=== PATIENT | male | born 2000 | race American Indian/Alaskan Native ===

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

== ENCOUNTER 2022-11-27 00:22 | Emergency (ER) | payer SELFPAY ==
[2022-11-27 02:23] VITALS: BP 128/67; PULSE 68
[2022-11-27] MEDS ORDERED: ALPRAZolam 0.25 MG Tab PO ONE (02:48)
[2022-11-27 03:31] LABS: ANION GAP 11.4 mEq/L (7-13); CALCIUM 8.8 mg/dL (8.5-10.1); EST CRCL DRUG DOSING (CG) 123.41 mL/min; POTASSIUM,K 4.4 mmol/L (3.5-5.1)
== END 2022-11-27 04:01 | disposition home or self-care (01) ==
LOC: DL.ED 00:22
DX: F41.9 Anxiety disorder, unspecified (principal); F43.0 Acute stress reaction; R20.2 Paresthesia of skin; F17.210 Nicotine dependence, cigarettes, uncomplicated
CPT/HCPCS: 36415; 80048; 93005; 93010; 99284; 99285